=== PATIENT | female | born 1965 | race Caucasian/White ===

== ENCOUNTER 2020-11-09 09:15 | Day surgery (SDC) | payer OTHER ==
--- NOTE | 2020-10-28 16:02 | NUR ---
DOS: 11-09-20 PT HAS RAMP TO GET INTO HOME, BUT HAS A TOTAL OF 13 STEPS TO GET TO BEDROOM. HAS WALK IN SHOWER AND WILL NEED A SHOWER CHAIR. HAS HIGH TOLITES SON AND OTHER FAMILY MEMBERS WILL BE WITH HER TO HELP AROUND THE HOUSE AND TRANSPORT TO PHYSICAL THERAPY.
[~2020-11-09] VITALS: Ht 162.6 cm; Wt 93.2 kg
[~2020-11-09 09:15] MED LIST: IBUPROFEN800 MG PO; LEVOTHYROXINE100 MC2 PO; SIMVASTATIN20 MG PO
--- NOTE | 2020-11-09 09:15 | NUR ---
PT ARRIVES TO DAY SURGERY WALKING INDEPENDENTLY ACCOMPANIED BY SON AND PLACED IN RM 3. WIPES AND WARM BLANKET PROVIDED.
[2020-11-09] MEDS ORDERED: EXCEDRIN MIGRA1 EAC2 PO (09:35)
--- NOTE | 2020-11-09 09:50 | NUR ---
PRE-PROCEDURE CHECK IN COMPLETE. PT RESTING IN LOCKED AND LOWERED BED, CALL LIGHT WITHIN REACH, SON AT THE BEDSIDE.
--- NOTE | 2020-11-09 10:05 | NUR ---
1005- CONTAMINATION CONSULTANT IN WITH PT 1010- THIS RN IN TO HELP ASSIST CONTAMINATION CONSULTANT WITH R KNEE BLOCK 1015- PT CONTINUES TO REST IN LOCKED AND LOWERED BED, CALL LIGHT WITHIN REACH. SON AT THE BESIDE. WARM BLANKETS PROVIDED.
--- NOTE | 2020-11-09 13:35 | NUR ---
11/09/20 1335 Johana Short 1312 PT ARRIVED IN PACU AWAKE C/O BACK OF R KNEE DISCOMFORT 02/03. 1321 TORADOL 30MG GIVEN IVP. CRYO CUFF PLACED ON R KNEE. 1335 PT RESTING. REU.
--- NOTE | 2020-11-09 14:00 | NUR ---
PT ARRIVED FROM PACU AND REPORT RECIEVED. WATER AND PUDDING PROVIDED. PT RESTING IN LOCKED AND LOWERED BED, SIDE RAILS UP, CALL LIGHT WITHIN REACH, SON AT THE BEDSIDE. NO FURTHER REQUESTS AT THIS TIME.
[2020-11-09] MEDS ORDERED: GABAPENTIN600 MG PO (14:16)
[2020-11-09] MEDS ORDERED: ACETAMINOPHEN500 MG PO (14:16)
[2020-11-09] MEDS ORDERED: OXYCODONE HCL5 MG PO (14:16)
[2020-11-09] MEDS ORDERED: ASPIRIN EC325 MG PO (14:16)
[2020-11-09] MEDS ORDERED: DICLOFENAC SODI75 MG PO (14:16)
[2020-11-09] MEDS ORDERED: STOOL SOFTENER1 EAC4 PO (14:16)
--- NOTE | 2020-11-09 14:51 | NUR ---
IN TO AMINISTER MEDICATION. PHYSICAL THERAPY IN WITH PT. PT DENIES PAIN OR NAUSEA AT THIS TIME AND CONTINUES TO WORK WITH PHYSICAL THERAPY AFTER MARBLE AND GRANITE POLISHER. SON AT THE BEDSIDE.
--- NOTE | 2020-11-09 15:04 | NUR ---
IN FOR HOURLY ASSESSMENT. PT UP TO USE THE RESTROOM WITH PHYSICAL THERAPY. PT REPORTS NO PAIN OR NAUSEA. NO FURTHER REQUESTS AT THIS TIME.
--- NOTE | 2020-11-09 15:23 | NUR ---
PT RETURNED FROM PHSYICAL THERAPY AND NOW RESTING IN LOCKED AND LOWERED BED, SIDE RAILS UP, CALL LIGHT WITHIN REACH, SON AT THE BEDSIDE. DIETRY CALLED TO PUT MEAL ORDER IN FOR PT. NO FURTHER REQUEST AT THIS TIME.
--- NOTE | 2020-11-09 16:05 | NUR ---
IN FOR HOURLY ASSESSMENT. PT DROWSY, RESTING IN LOCKED AND LOWERED BED, CALL LIGHT WITHIN REACH, SON AT THE BEDSIDE.
--- NOTE | 2020-11-09 16:07 | NUR ---
PT USES CALL LIGHT TO REPORT NAUSEA. EMESIS BAG PROVIDED. PT HAS DARK EMESIS. NEW GOWN PROVIDED.
--- NOTE | 2020-11-09 17:45 | NUR ---
SON HELPS PT GET DRESSED. IV REMOVED WNL. DC INSTRUCTIONS PRESENTED TO PT AND SON, ALL QUESTIONS ADDRESSED. PT DC FROM DS RM 3 VIA WC TO PERSONAL VEHICLE AT HOSPITAL ENTRANCE WITH SON HOME.
--- NOTE | 2020-11-11 09:38 | OR ---
[facility] [address] [place], [place] [address] Signed DATE OF OPERATION: 11/09/2020 SURGEON: Jil Kumar MD PREOPERATIVE DIAGNOSES: Severe degenerative joint disease, right knee. POSTOPERATIVE DIAGNOSIS: Severe degenerative joint disease, right knee. PROCEDURE PERFORMED: Right total knee arthroplasty with Carson. DIGITAL RECRUITER: ZARIA Kapadia. Elizabeth was present and critical for all portions of procedure. ANESTHESIA: Spinal. ESTIMATED BLOOD LOSS: 250 mL. TOURNIQUET TIME: Zero. IMPLANTS: Size #3 Elyse triathlon 9 mm polyethylene and 31 patella. BRIEF HISTORY: Lizzie is a 55-year-old female with progressive worsening of extensive arthritis in both knees. She did have a 30-degree flexion contracture in the right knee. Risks and benefits of operative treatment were discussed with her, she elected to proceed. DESCRIPTION OF PROCEDURE: Once consent was obtained, she was taken to the operating room after adequate anesthesia. She was placed on the operating table. All downside pressure points well padded. Hip bump was placed. The leg was prepped and draped in the standard sterile fashion. No tourniquet was placed. The knee was approached through standard anterior and longitudinal incision taken through skin and subcutaneous tissue. A mid vastus Electronically Signed By: JIL KUMAR MD 11/11/20 0938 PATIENT NAME: LIZZIE MARRERO OPERATIVE REPORT DATE OF : 69 REPORT #: [id number] PHYSICIAN: JIL KUMAR MD PCP: COURTNEY VILLAVICENCIO NP REPORT IS CONFIDENTIAL AND NOT TO BE RELEASED WITHOUT AUTHORIZATION [facility] [address] [place], [place] [address] Signed approach was taken into the joint and the MCL was elevated of a sleeve around the posteromedial corner. All bleeders were cauterized as we went. The infrapatellar fat pad was excised. Anterior on the lateral meniscus was transected as was the ACL. The checkpoints for the Carson were placed in the medial femoral condyle and the proximal tibia. The computer ray was placed in medial femoral condyle and in an intra-articular position. The tibia was placed percutaneously one handsbreadth below the tibial tubercle. The leg was then registered with the computer as were the fine anatomic points. The knee had a 30-degree flexion contracture, so we were unable to ascertain ligament balance secondary to the flexion contracture. It was then decided to go ahead with the tibial cut. The robot was brought in. The tibial cut was made per our preoperative plan and the bone was excised. We then able to check ligament balance was make subtle adjustments mostly to the femur. We did take three more millimeters off the femur. The robot was brought in and the remainder of the straight cuts and the two ankle cuts were made. We then placed the trials and went through range of motion, we started at about a 10-degree flexion contracture, so we removed the trials and recut the tibia 1.5 mm further down. We then got zero and excellent ligamentous stability in flexion and extension. The patella was cut sized and drilled to correction 31 patella. The distal femur was drilled and the tibial keel punch was used to finish the tibia. She did have soft bones. We were going with a hybrid prosthesis. The bone was pulse lavaged and packed with dry Ray-Bryan. The cement was mixed and reached proper consistency, it was placed the tibial and patellar bone surfaces and the tibial and patellar components. Tibia was impacted in position first, followed by the polyethylene. All excess cement was removed. The femur was impacted. The knee was extended and nicely loaded. The patella was clamped into position, again any overflow was removed. The cement was allowed to harden. Once hardened sufficiently, the knee was flexed any overflow remaining was removed. The knee was pulse lavaged with 1 L of normal saline, 1 L of dilute iodine, followed by of saline. The On-Q pain pump was placed percutaneously into the adductor canal from the suprapatellar pouch. The arthrotomy was then closed using #2 Stratafix, she was still a little bit oozy as she had been throughout the case. Once we got the knee closed, we placed a gram of TXA in the knee. The subcutaneous tissue was closed with #1 Stratafix, the skin with raymon and she was placed in a pressure dressing. She was awakened and taken to the recovery room in satisfactory condition. All sponge, needle, and instrument counts were correct. Jil Kumar MD BA/MODL Electronically Signed By: JIL KUMAR MD 11/11/20 0938 PATIENT NAME: LIZZIE MARRERO OPERATIVE REPORT DATE OF : 69 REPORT #: [id number] PHYSICIAN: JIL KUMAR MD PCP: COURTNEY VILLAVICENCIO NP REPORT IS CONFIDENTIAL AND NOT TO BE RELEASED WITHOUT AUTHORIZATION [place] [phone] Signed /[id number] Copies: ~ Electronically Signed By: JIL KUMAR MD 11/11/20 0938 PATIENT NAME: LIZZIE MARRERO OPERATIVE REPORT DATE OF : 69 REPORT #: [id number] PHYSICIAN: JIL KUMAR MD PCP: COURTNEY VILLAVICENCIO NP REPORT IS CONFIDENTIAL AND NOT TO BE RELEASED WITHOUT AUTHORIZATION
== END 2020-11-09 18:00 | disposition home or self-care (01) ==
LOC: DS 09:15
PROVIDERS: ATTEND Specialist
PROC: 8E0Y0CZ Robotic Assisted Procedure of Lower Extremity, Open Approach (ICD-10-PCS; 2020-11-09)
PROC: 0SRC0J9 Replacement of Right Knee Joint with Synthetic Substitute, Cemented, Open Approach (ICD-10-PCS; principal; 2020-11-09 11:00)
DX: M17.0 Bilateral primary osteoarthritis of knee (principal); I10 Essential (primary) hypertension; E78.00 Pure hypercholesterolemia, unspecified; E03.9 Hypothyroidism, unspecified; Z87.891 Personal history of nicotine dependence; Z79.899 Other long term (current) drug therapy; Z79.890 Hormone replacement therapy; Z79.1 Long term (current) use of non-steroidal anti-inflammatories (NSAID); Z88.2 Allergy status to sulfonamides; Z79.82 Long term (current) use of aspirin
CPT/HCPCS: 01402; 64447; 64450; 76942; 97110; 97161; C1713; C1776; J0690; J1100; J1885; J2001; J2250; J2704; J2795; J7121

== ENCOUNTER 2021-05-17 07:25 | Day surgery (SDC) | payer OTHER ==
--- NOTE | 2021-05-04 16:56 | NUR ---
DOS:05-17-21 STAIRS: HAS RAMP SHOWER: LOW STEP IN NO BENCH (DID NOT NEED ONE WITH HER RIGHT KNEE) WALKER: HAS A FWW FOLLOW UP APPOINTMENTS & PHYSICAL THERAPY: FAMILY WILL BRING HER TOILET: HAS A TALL TOILET
[~2021-05-17] VITALS: Ht 162.6 cm; Wt 97.3 kg
[~2021-05-17 07:25] MED LIST changes: +ACETAMINOPHEN500 MG PO; +ASPIRIN EC325 MG PO; +DICLOFENAC SODI75 MG PO; +EXCEDRIN MIGRA1 EAC2 PO; +GABAPENTIN600 MG PO; +ICAPS AREDS2 C1 EACH PO; +IRON325 M1 PO; +OXYCODONE HCL5 MG PO; +STOOL SOFTENER1 EAC4 PO
[2021-05-17] MEDS ORDERED: TYLENOL325 M1 PO (07:43)
[2021-05-17] MEDS ORDERED: XARELTO10 MG PO (12:27)
[2021-05-17] MEDS ORDERED: OXYCODONE HCL5 MG PO (12:27)
[2021-05-17] MEDS ORDERED: DICLOFENAC SODI75 MG PO (12:27)
[2021-05-17] MEDS ORDERED: ASPIRIN EC325 MG PO (12:27)
[2021-05-17] MEDS ORDERED: GABAPENTIN300 MG PO (12:27)
[2021-05-17] MEDS ORDERED: SENNA LAX8.6 MG PO (12:28)
--- NOTE | 2021-05-17 12:36 | NUR ---
05/17/21 1236 Lauren Monteiro 1228- PT ARRIVES TO PACU AROUSABLE TO VOICE. PT ENCOURAGED TO COUGH AND DEEP BREATHE. PT IS ABLE DO THIS. OXYGEN SAT INITIALLY 88% ON 12L VIA MASK. PT IS ABLE TO RAISE SAT TO 96% WITH DEEP BREATHS. PT HAS AN NPA IN PLACE WELL. 1234- PT IS TALKING AND STATES SHE JUST "FEELS GROGGY". ASKED PT IF SHE WOULD LIKE THE NPA TO COME OUT OF HER NOSE. THE PT STATES THAT WOULD BE NICE. NPA REMOVED. OXYGEN MASK REPLACED. 1235- CRYOCUFF PLACED TO PT'S LEFT KNEE WITH DRESSING IN BETWEEN SKIN AND CRYOCUFF.
--- NOTE | 2021-05-17 13:49 | NUR ---
1315: PT ARRIVES TO UNIT FROM PACU VIA STRETCHER. ALERT AND ORIENTED, VSS, RESP EVEN AND UNLABORED. PT REPORTS RODOLFO PAIN LEVEL AT THIS TIME BUT REPORTS IT IS INCREASING. TO EAT CRACKER PRIOR TO SCHED RX ADMIN. DRESSING C/DI, CMS WNL. ONQ, SCDS AND MELVINA HOSE IN PLACE. SON ATTENTIVE AT THE BEDSIDE. PT WITHOUT NEEDS AT THIS TIME. CALL LIGHT WITHIN REACH 1345: PT RODOLFO CRACKERS WELL, SCHED PAIN RX ADMINISTERED ORDERED. NO NEEDS VOICED. CALL LIGHT WITHIN REACH
--- NOTE | 2021-05-17 14:21 | NUR ---
1415: PT AWAKE AND ALERT, COMFORTABLE AT THIS TIME. VSS, RESP EVEN AND UNLABORED. CONTS TO DENY NAUSEA, COFFEE PROVIDED REQUESTED. DRESSING C/D/I, [facility] WNL. 1420: PHYSICAL THERAPIST ARRIVES AT THE BEDSIDE FOR THERAPY SESSION
--- NOTE | 2021-05-17 15:11 | NUR ---
1500: PT RETURNS FROM PHYSICAL THERAPY SESSION AND IS CLEARED FOR D/C BY THERAPIST. 1510: PT DROWSES INTERMITTENTLY, WAKES WHEN THIS RN ENTERS THE ROOM. VSS, RESP EVEN AND UNLABORED. DENIES PAIN AND NAUSEA. PUDDING PROVIDED REQUESTED. DRESSING REMAINS C/D/I, [facility] WNL. 1515: TC PLACED TO MD SUJIT TO REQUEST D/C ORDER. NO ANSWER AT THIS TIME
--- NOTE | 2021-05-17 15:17 | NUR ---
1518: TELEPHONE D/C ORDER RECEIVED FROM MD SUJIT
--- NOTE | 2021-05-17 15:51 | NUR ---
1635: PAIN RX ADMINISTERED ORDERED AND SECOND DOSE OF ANCEF ADMINISTERED PER VERBAL MD ORDER. D/C INSTRUCTIONS PROVIDED AND DISCUSSED ORDERED. PT VOICES UNDERSTANDING AND DENIES QUESTIONS AND CONCERNS AT THIS TIME. SL D/C'D WITH CATH TIP INTACT AND PRESSURE APPLIED TO SITE. PT TO DRESS FOR D/C. DECLINES NEED FOR ASSISTANCE AT THIS TIME
--- NOTE | 2021-05-17 17:03 | NUR ---
1610: PT WHEELED OFF OF UNIT BY TERESA SAVAGE IN W/C. RESP EVEN AND UNLABORED. NO PHYSICAL S/S OF DISTRESS AT THIS TIME
--- NOTE | 2021-06-02 13:24 | OR ---
[facility] [address] [place], [place] [address] Signed DATE OF OPERATION: 05/17/2021 SURGEON: Jil Kumar MD PREOPERATIVE DIAGNOSIS: Degenerative joint disease of left knee. POSTOPERATIVE DIAGNOSIS: Degenerative joint disease of left knee. PROCEDURE PERFORMED: Left total knee arthroplasty. OWNER CONSULTING ENGINEER: Elizabeth Adkins PA-C. Elizabeth was present and critical for all portions of procedure. BLOOD LOSS: 200 mL. ANESTHESIA: Spinal. IMPLANTS: Elyse Triathlon size 4 femur, 3 tibia, 9 mm poly, and 32 patella. BRIEF HISTORY: Lizzie is a 55-year-old female with progressive worsening of osteoarthritis. She had severe arthritis with flexion contractures in both knees. She had undergone successful right total knee and wished to proceed with a left. DESCRIPTION OF OPERATIVE PROCEDURE: Once consent was obtained, she was taken to the operating room after adequate anesthesia. She was placed on operating room table, all downside pressure points were well padded. The left leg was prepped and draped in a standard sterile fashion. No tourniquet was placed. The knee was approached through a standard anterior approach, carried through skin and subcutaneous tissue. Midvastus arthrotomy was performed and the MCL was elevated around as a sleeve to the posterior corner. Actually just a bit posterior to that. The infrapatellar fat pad was excised and the lateral meniscus was released to allow mobilization of the tibia. She had significant osteophytes in the Electronically Signed By: JIL KUMAR MD 05/20/21 8127 Electronically Signed By: JIL KUMAR MD 06/07/21 0894 PATIENT NAME: LIZZIE MARRERO OPERATIVE REPORT DATE OF : 69 REPORT #: [id number] PHYSICIAN: JIL KUMAR MD PCP: COURTNEY VILLAVICENCIO NP REPORT IS CONFIDENTIAL AND NOT TO BE RELEASED WITHOUT AUTHORIZATION [facility] [address] [place], [place] [address] Signed suprapatellar pouch and these were removed again to help mobilize the patella. She was noted to have a 22-degree flexion contracture at beginning of the case. This was confirmed with the robot. The checkpoints were placed in the proximal tibia and the medial femoral condyle. The computer rays were placed in the medial femoral condyle and the tibia through separate stab incisions. The leg was then registered with the computer as was the fine anatomical points. The position of implant was adjusted to allow for the flexion contracture and little of varus. Once this was accomplished, the robot was brought in and the straight blade was used to cut the first four cuts with care taken to protect the patellar tendon and MCL. The angled blade was then used for the last 2 cuts. All bone remnants were removed as were any remaining osteophytes. The posterior osteophytes removed off the femur and posterior release was performed. Fairly extensive release was performed. We then placed the trials, we were able to get her from 0-125 degrees of flexion. The patella was cut sized and drilled for a 32 mm patella. The distal femoral drill holes were used. Her bone was quite good, so we elected to go with a non-cemented prosthesis. The proximal tibia was finished using the keel punch followed by the 4-point drill guide. The implants were selected and the tibia was impacted in position first followed by the polyethylene. The femur was impacted until it was well-seated and the knee was extended and nicely loaded. The patella was clamped into position and the knee was taken through range of motion, it was full and found to be as above. The knee was pulse lavaged at intervals throughout the procedure, a total of 3 L normal saline and 500 mL of Aricept were used. The periarticular soft tissues were injected with 100 mL ropivacaine Toradol mixture. The On-Q pain pump was placed percutaneously into the adductor canal from the suprapatellar pouch. The arthrotomy was then closed using #2 Stratafix, subcutaneous tissue with #0 Stratafix, and skin with raymon. Wound was dressed with an Acticoat 7 dressing, ABD, and Boaz wrap. She tolerated the procedure well. All sponge, needle, and instrument counts were correct. Jil Kumar MD BA/MODL /[id number] Electronically Signed By: JIL KUMAR MD 05/20/21 1644 Electronically Signed By: JIL KUMAR MD 06/07/21 0820 PATIENT NAME: LIZZIE MARRERO OPERATIVE REPORT DATE OF : 69 REPORT #: [id number] PHYSICIAN: JIL KUMAR MD PCP: COURTNEY VILLAVICENCIO NP REPORT IS CONFIDENTIAL AND NOT TO BE RELEASED WITHOUT AUTHORIZATION [address] [address] Signed Copies: ~ Electronically Signed By: JIL KUMAR MD 05/20/21 1644 Electronically Signed By: JIL KUMAR MD 06/07/21 0820 PATIENT NAME: LIZZIE MARRERO OPERATIVE REPORT DATE OF : 69 REPORT #: [id number] PHYSICIAN: JIL KUMAR MD PCP: COURTNEY VILLAVICENCIO NP REPORT IS CONFIDENTIAL AND NOT TO BE RELEASED WITHOUT AUTHORIZATION
== END 2021-05-17 16:15 | disposition home or self-care (01) ==
LOC: DS 07:25
PROVIDERS: ATTEND Specialist
PROC: 8E0YXBZ Computer Assisted Procedure of Lower Extremity (ICD-10-PCS; 2021-05-17)
PROC: 0SRD0JA Replacement of Left Knee Joint with Synthetic Substitute, Uncemented, Open Approach (ICD-10-PCS; principal; 2021-05-17 10:15)
DX: M17.12 Unilateral primary osteoarthritis, left knee (principal); G89.18 Other acute postprocedural pain; E03.9 Hypothyroidism, unspecified; Z88.2 Allergy status to sulfonamides; Z87.891 Personal history of nicotine dependence; E66.01 Morbid (severe) obesity due to excess calories; Z68.36 Body mass index [BMI] 36.0-36.9, adult; Z96.651 Presence of right artificial knee joint
CPT/HCPCS: 01402; 64447; 64450; 76942; 97110; 97161; C1713; C1776; J0690; J0735; J1100; J1885; J2001; J2250; J2405; J2704; J2765; J2795; J3010; J7040; J7121